=== PATIENT | female | born 1950 | race Caucasian/White ===

== ENCOUNTER 2022-10-08 10:54 | Emergency (ER) | payer MEDICARE, SELFPAY ==
[2022-10-08 10:55] VITALS: BP 194/106; PULSE 80; RESP 16; TEMP 36.4; O2SAT 98; BMI 32.3
--- NOTE | 2022-10-08 11:03 | EKG12_ITS ---
Test Reason : HIGH BP Blood Pressure : / mmHG Vent. Rate : 077 BPM Atrial Rate : 077 BPM P-R Int : 160 ms QRS Dur : 090 ms QT Int : 382 ms P-R-T Axes : 041 -10 035 degrees QTc Int : 432 ms Normal sinus rhythm Normal ECG Confirmed by GENNARO MENDEZ, ANKIT ([id number]), editor farm journal DIAMOND MUNOZ ([id number]) on 10/11/2022 12:39:20 PM Referred By: Confirmed By:ANKIT BURDICK MD
[2022-10-08 11:15] VITALS: PULSE 79; RESP 18; O2SAT 98
[2022-10-08 11:16] VITALS: BP 189/96; PULSE 80; RESP 13; O2SAT 96
--- NOTE | 2022-10-08 11:18 | EDS_ITS ---
HPI History of Present Illness Chief Complaint: Hypertension Detail of Chief Complaint: Multiple high blood pressure readings Informant: patient and spouse/S.O. Onset/Context/Timing Onset: Today Context: - (Unknown) Timing: - (Presumed continuous) Quality: Systolic varying from 168-198 Location: Not applicable Current Severity: Mild Maximum Severity: Mild Worsened by: Unknown Relieved by: Nothing Associated Symptoms Associated Symptoms: Flush sensation Narrative Narrative: Patient is a 72-year-old woman with no history of hypertension, diabetes or hypercholesterolemia. She states her last annual exam was November 2021. She states at that time her systolic blood pressure was 139. She states on Tuesday she felt flushed and had nausea with 1 episode of emesis. She states she had similar presentation when she was diagnosed with hiatal hernia. Today she felt flushed and mild head discomfort. She took her blood pressure. She has taken her blood pressure total of 4 times. Her systolic has varied between 168-198. Diastolic is greater than 100. She presently denies headache, visual, ocular auditory symptoms. She denies trouble with speech or swallowing. She denies cardiac or respiratory symptoms. She denies nausea or vomiting. She denies paresthesia, anesthesia or motor weakness upper or lower extremity. She denies problems with coordination or balance. Prior similar symptoms: No Recent Illness/Hospitalization: No PFSH PFSH Medical History no medical history no medical history Home Medications hydrochlorothiazide 12.5 mg tablet 12.5 mg PO DAILY #30 tabs 10/08/22 [Rx Last Taken Unknown] Allergy/AdvReac Type Severity Reaction Status Date / Time levofloxacin [From Levaquin] Allergy Hives Verified 10/08/22 10:56 Family History unable to obtain Surgical History H/O: hysterectomy Social History (Updated 10/08/22 @ 11:[address] Rian Moore MD) household members: spouse Smoking Status: Never smoker alcohol intake: current alcohol intake frequency: holidays/special occasions only substance use type: does not use ROS ROS ED Constitutional Constitutional ED: Denies chills, fever(s), subjective, sweats or weight loss Eyes Eyes: Denies blurry vision, change in vision or diplopia ENT ENT ED: Denies ear pain, rhinorrhea or sore throat Cardiovascular Cardiovascular: Denies chest pain, orthopnea, palpitations, paroxysmal nocturnal dyspnea or racing heartbeat Respiratory/Chest Respiratory/Chest: Denies cough, dyspnea, dyspnea on exertion, orthopnea or paroxysmal nocturnal dyspnea Gastrointestinal Gastrointestinal: Denies abdominal pain, diarrhea, melena, nausea or vomiting Genitourinary Genitourinary ED: Denies dysuria, hematuria or urinary frequency Musculoskeletal Musculoskeletal: Denies arthralgias, back pain, myalgias or neck pain Integumentary Denies abscess, Abrasions or rash Neurologic Neurologic: Denies headache(s), paresthesias or weakness Psychiatric Psychiatric: Denies anxiety Endocrine Endocrinology: Denies cold intolerance, heat intolerance, polydipsia or polyuria EXAM Physical Exam Const Vital Signs: 10/08/22 10:55 10/08/22 11:15 10/08/22 11:16 Temperature 97.6 F L Temperature Source Temporal Pulse Rate 80 79 80 Respiratory Rate 16 18 13 Blood Pressure 194/106 H 189/96 H Blood Pressure Mean 135 123 Pulse Ox 98 98 96 Oxygen Delivery Method Room Air Positive well nourished, well developed and obese Constitutional Narrative: Patient reports no change in weight. General Appearance ED: well developed and NAD; Negative for pallor Nutritional Appearance: obese HEENT Reports moist mucous membranes HEENT Narrative: Head is atraumatic normocephalic. Ears normal. TMs normal. Nares patent. Uvula midline. No deviation of tongue with protrusion. Posterior pharynx is unremarkable. Eyes PERRL and EOMs intact bilaterally Eyes Narrative: Cup-to-disc ratio normal. There is no papilledema. There is no AV nicking noted. There is no nystagmus. General Eye ED: Negative for pale conjunctiva or scleral icterus Neck no lymphadenopathy, supple and no JVD Chest Wall inspection of chest normal and palpation of chest normal Resp normal respiratory effort and clear to auscultation bilaterally Cardio regular rate, regular rhythm, S1 normal heart sound, S2 normal heart sound and no murmurs GI normal to inspection, nondistended, normoactive bowel sounds, non-distended and no masses Back/Spine no CVA tenderness Extremity normal to inspection General Extremety ED: Negative for edema or tenderness General Extremity: Negative for edema Neuro oriented x3, CN's II-XII intact bilaterally and no sensory deficits noted Neuro Narrative: There is no dysmetria. Bicep, tricep, brachialis, patella and ankle reflexes are 2+ and symmetric. There is no clonus or Babinski sign noted. Gait was observed and is normal. Sensorium / Orientation: alert Motor Exam: strength 5/5 throughout Psych mental status grossly normal Skin no rashes or lesions noted, no wounds and skin turgor normal General Skin Exam: Negative for elasticity normal, jaundice or pallor MDM MDM MDM Narrative Medical decision making narrative: Patient presents with hypertension. Review of prior records indicates patient does not have history of hypertension. Prior records were reviewed through [facility]. There was no documented blood pressures for comparison. 1 visit was for mammogram screening. Patient also had screening for osteopenia/osteoporosis. Review of problem list confirms that patient does not have history of hypertension. EKG, basic metabolic panel and UA were obtained to assess for evidence of endorgan dysfunction. We will also monitor blood pressure. Since patient has no evidence of endorgan dysfunction patient was told there are 2 options 1 would be to treat her with a antihypertensive med or contact her doctor and have her pressure checked in 1 to 2 weeks and if still elevated to initiate therapy. Patient states because she has this flushed feeling and pressure in her head she would like to start on a blood pressure med. Patient was informed of prior studies that patients can wait for prolonged period prior to initiation therapy. She states she would prefer to start treatment. Lab Data Attestation: I reviewed the patient's lab results. Lab results narrative: Basic metabolic panel reveals slight elevation in chloride which is insignificant. Renal function is normal. CO2 anion gap is normal. Electrolytes are normal. Labs: Laboratory Results - last 24 hr 10/08/22 10/08/22 11:09 13:00 Sodium 142 Potassium 4.9 Chloride 108 H Carbon Dioxide 29.0 Anion Gap 5 BUN 17 Creatinine 0.81 Estim Creat Clear Calc 70.87 Est GFR (MDRD) Af Amer 90 Est GFR (MDRD) Non-Af 74 BUN/Creatinine Ratio 21.1 H Glucose 108 H Calcium 10.2 H Urine Color Yellow Urine Clarity Clear Urine pH 8.0 Ur Specific [place] 1.010 Urine Protein Negative Urine Glucose (UA) Normal Urine Ketones Negative Urine Occult Blood Negative Urine Nitrite Negative Urine Bilirubin Negative Urine Urobilinogen Normal Ur Leukocyte Esterase Negative Urine RBC 0 SEEN Urine WBC 0 SEEN Ur Squamous Epith Cells 0 SEEN Urine Bacteria 0 SEEN Urine Mucus 0 SEEN EKG Initial EKG: Attestation: I personally reviewed and interpreted this EKG as follows: Interpretation: Sinus Rhythm (EKG is normal. Rate is 77. MD interval is 160 ms. QRS duration is 90 ms. QT duration is an 82 ms axis is normal. There is no evidence of LVH.) Treatment and Re-Evaluation Narrative: Patient instructed to contact her doctor for blood pressure check in 1 to 2 weeks. She was in informed that the medication will increase urine output the first 1 to 2 weeks. Discharge Plan Triage Chief Complaint: Hypertension Other Complaint: Dizziness ED Provider: Rian Moore Dx/Rx/DC Orders Clinical Impression: Hypertension Instructions: ED Hypertension New Begin Treatment Prescriptions: New hydrochlorothiazide 12.5 mg tablet 12.5 mg PO DAILY Qty: 30 0RF Primary Care Provider: Marvin Bhatt Referrals: Marvin Bhatt MD [Primary Care Provider] - 1-2 Weeks Disposition Disposition: Home, Self Care
[2022-10-08 11:43] LABS: Anion Gap 5 (5-15); BUN 17 mg/dL (7-18); BUN/Creat Ratio 21.1 RATIO (10-20); Calcium,Total 10.2 mg/dL (8.5-10.1); Chloride 108 mmol/L (98-107); Creatinine, Serum 0.81 mg/dL (0.55-1.02); EST Glomerular Filtration Rate 74 mL/min (>60); Est Glom Filt Rate - Afr Amer 90 mL/min (>60); Estimated Creatinine Clearance 70.87 ml/min; Glucose 108 mg/dL (74-106); Potassium 4.9 mmol/L (3.5-5.1); Sodium Level 142 mmol/L (136-145)
[2022-10-08 13:15] LABS: Bacteria 0 SEEN /hpf (None Seen); Mucous, Urine 0 SEEN /hpf (<or=2+); Red Blood Cells-Urine 0 SEEN /hpf (0-5); Squamous Epithelial Cells - UA 0 SEEN /hpf (5-10); White Blood Cells 0 SEEN /hpf (0-5)
[2022-10-08 13:20] LABS: Color, Urine Yellow (Yellow); Glucose, Dipstick Normal (Normal); Ketone-Dipstick Negative (Negative); Leukocyte Esterase-Dipstick Negative /ul (Negative); Nitrite-Dipstick Negative (Negative); Occult Blood-Urine Negative /ul (Negative); Protein-Dipstick Negative (Negative); Urine Bilirubin Dipstick Negative (Negative); Urine Clarity Clear (Clear); Urine Urobilinogen Normal (Normal)
[2022-10-08] MEDS: hydroCHLOROthiazide 12.5mg 12.5 MG PO (13:47)
== END 2022-10-08 13:50 | disposition home or self-care (01) ==
PROVIDERS: Emergency Provider Emergency Medicine; PCP Family Medicine; Visit Provider Emergency Medicine
DX: I10 Essential (primary) hypertension (principal); E66.9 Obesity, unspecified
CPT/HCPCS: 80048; 81001; 93005; 99285; A4216

== ENCOUNTER 2024-07-12 04:08 | Emergency (ER) | payer MEDICARE, SELFPAY ==
[2024-07-12 04:09] VITALS: BP 159/71; PULSE 75; RESP 16; TEMP 36.8; O2SAT 95; BMI 37.5
--- NOTE | 2024-07-12 04:23 | CT_ITS ---
EXAM: CT Abdomen And Pelvis W/O Contrast Injection HISTORY: flank pain rt flank pain, hx ks, hyster TECHNIQUE: Routine protocol CT abdomen and pelvis. IV Contrast: None.. Oral contrast: None. RADIATION DOSAGE (If Supplied By Facility): CTDIvol = ( 14.29 ) mGy, DLP = ( 677.48 ) mGycm Individualized dose optimization techniques were used for this CT. COMPARISON: None. LIMITATIONS: None. FINDINGS: LOWER CHEST: Included lung bases are clear. Coronary artery calcifications are noted. Small hiatal hernia LIVER: Small cysts in the left lobe. GALLBLADDER AND BILIARY TREE: Grossly unremarkable. PANCREAS: Grossly unremarkable. SPLEEN: Grossly unremarkable. ADRENAL GLANDS: Grossly unremarkable. KIDNEYS AND URETERS: There is a 3 mm calculus in the distal right ureter at the ureterovesical junction. The right ureter is dilated with moderate right hydronephrosis and perinephric stranding. Several small calculi in the left kidney. No hydronephrosis on the left. PERITONEUM: No free air. No free fluid. BOWEL: No bowel obstruction. APPENDIX: Visualized and unremarkable. No evidence of acute appendicitis. VESSELS: Abdominal aorta is normal caliber. REPRODUCTIVE ORGANS: The uterus is not identified. URINARY BLADDER: Minimally distended. ABDOMINAL WALL: Unremarkable. BONES: No acute abnormalities. Degenerative changes lumbar spine with minimal anterolisthesis at L3-4, and L4-5. CT/Abdomen/Pelvis without Cont IMPRESSION: Distal right ureteral calculus with moderate right hydroureteronephrosis. Left nephrolithiasis. Electronically Signed: Carolina Villalobos MD at 5:28 EST ,
[2024-07-12 04:29] LABS: Bacteria 0 SEEN /hpf (None Seen); Mucous, Urine 0 SEEN /hpf (<or=2+); Red Blood Cells-Urine 0 SEEN /hpf (0-5); Squamous Epithelial Cells - UA 0 SEEN /hpf (5-10); White Blood Cells 0 SEEN /hpf (0-5)
[2024-07-12] MEDS: 0.9% Normal Saline (1000mL) 1,000 ML 999 ML IV (04:32)
[2024-07-12] MEDS: Ketorolac 15 MG/ML Vial IV (04:32)
[2024-07-12] MEDS: Ondansetron 4 MG/2 ML Vial IV (04:32)
[2024-07-12 04:33] LABS: Absolute Lymphocyte Count 0.85 X10^3/uL (0.83-4.51); Absolute Neutrophil Count 7.6 X10^3/uL (2.0-7.7); Basophil# 0.02 X10^3/uL; Basophil% 0.2 % (0-1); Eosinophil# 0.06 X10^3/uL; Eosinophils% 0.7 % (0-5); Hematocrit 42.3 % (37-47); Hemoglobin 13.9 g/dL (12.0-15.0); Lymphocyte # 0.85 X10^3/ul (0.83-4.51); Lymphocyte % 9.4 % (19-41); Mean Corp Hgb Conc 32.9 g/dL (32-36); Mean Corpuscular Hgb 28.3 pg (27.0-32.0); Mean Platelet Vol. 9.8 fl (6.2-12.0); Monocyte# 0.55 X10^3/uL; Monocyte% 6.1 % (0-10); NRBC Flagged by Analyzer 0 % (0-5); Neutrophil # 7.58 X10^3/uL (2.7-7.7); Neutrophil % 83.3 % (47-70); Platelet Count 286 K/mm3 (150-450); RBC Distribution Width CV 14.2 % (11.6-14.6); RBC Distribution Width SD 44.8 fl (35.1-43.9); Red Blood Count 4.92 M/mm3 (4.2-5.4); White Blood Count 9.1 K/mm3 (4.4-11.0)
[2024-07-12 04:34] LABS: Color, Urine Yellow (Yellow); Glucose, Dipstick Normal (Normal); Ketone-Dipstick Negative (Negative); Leukocyte Esterase-Dipstick 100 /ul (Negative); Nitrite-Dipstick Negative (Negative); Occult Blood-Urine 25 /ul (Negative); Protein-Dipstick 100 mg/dl (Negative); Specific Gravity, Urine 1.025 (1.002-1.030); Urine Bilirubin Dipstick Negative (Negative); Urine Clarity Clear (Clear); Urine Urobilinogen Normal (Normal)
[2024-07-12 04:53] LABS: Anion Gap 6 (5-15); BUN 19 mg/dL (7-18); BUN/Creat Ratio 22.9 RATIO (10-20); Calcium,Total 9.3 mg/dL (8.5-10.1); Chloride 107 mmol/L (98-107); Creatinine, Serum 0.83 mg/dL (0.55-1.02); EST Glomerular Filtration Rate 71 mL/min (>60); Est Glom Filt Rate - Afr Amer 86 mL/min (>60); Estimated Creatinine Clearance 57.32 ml/min; Glucose 163 mg/dL (74-106); Potassium 4.5 mmol/L (3.5-5.1); Sodium Level 138 mmol/L (136-145)
--- NOTE | 2024-07-12 05:47 | EX.ED.DYSGE1 ---
HPI History of Present Illness Chief Complaint: Flank Pain Informant: patient and spouse/S.O. Narrative Narrative: Patient is a 73-year-old female with past medical history of hypertension and remote history of kidney stone roughly 10 years ago. She states last night she developed right sided flank/back pain while at rest. She states that there was no recent trauma or excessive activity prior to the pain beginning. She denies any concern for urinary tract infection. She states there is been no loss of bowel or bladder control and she denies any IV drug use. She states the pain began wrapping around towards her abdomen and she feels this is very similar to her previous history of kidney stone and with concern for this comes in for evaluation. PFSH PFSH Home Medications ?Medication ?Instructions ?Recorded ?Last Taken ?Type hydrochlorothiazide 12.5 mg tablet 12.5 mg PO DAILY #30 tabs 10/08/22 Unknown Rx cephalexin 500 mg capsule 500 mg PO TID 7 days #21 caps 07/12/24 Unknown Rx ketorolac 10 mg tablet 10 mg PO 4X/DAY PRN pain 5 days 07/12/24 Unknown Rx #20 tabs ondansetron 4 mg disintegrating 4 mg PO TID PRN nausea and 07/12/24 Unknown Rx tablet vomiting #21 tabs oxycodone 5 mg tablet 5 mg PO Q6H PRN pain 5 days #20 07/12/24 Unknown Rx tabs tamsulosin 0.4 mg capsule (Flomax) 0.4 mg PO DAILY 14 days #14 caps 07/12/24 Unknown Rx Allergy/AdvReac Type Severity Reaction Status Date / Time levofloxacin (From Levaquin) Allergy Hives Verified 07/12/24 04:08 Surgical History (Updated 07/12/24 @ 04:11 by Suma Ortiz) Status post removal of part of parathyroid H/O: hysterectomy Social History (Updated 10/08/22 @ 11:[address] Rian Moore MD) household members: spouse Smoking Status: Never smoker alcohol intake: current alcohol intake frequency: holidays/special occasions only substance use type: does not use ROS ROS ED Constitutional Constitutional ED: Denies chills or fever(s) ENT ENT ED: Denies sore throat Cardiovascular Cardiovascular: Denies chest pain Respiratory/Chest Respiratory/Chest: Denies cough or dyspnea Gastrointestinal Gastrointestinal: Reports abdominal pain and nausea; Denies diarrhea or vomiting Genitourinary Genitourinary ED: Reports hematuria; Denies dysuria or urinary frequency Musculoskeletal Musculoskeletal: Reports back pain; Denies myalgias Integumentary Denies rash Neurologic Neurologic: Denies headache(s) Hematologic/Lymphatic Hematologic/Lymphatic: Denies easy bleeding or easy bruising EXAM Physical Exam Const Vital Signs: 07/12/24 04:09 07/12/24 06:21 Temperature 98.2 F 98.0 F Temperature Source Oral Pulse Rate 75 83 Respiratory Rate 16 18 Blood Pressure 159/71 H 145/82 H Blood Pressure Mean 100 103 Pulse Ox 95 95 Oxygen Delivery Method Room Air Positive well nourished and well developed General Appearance ED: well developed; Negative for pallor HEENT HEENT Narrative: Normocephalic atraumatic Eyes PERRL and EOMs intact bilaterally General Eye ED: Negative for scleral icterus Neck supple Resp normal respiratory effort and clear to auscultation bilaterally Cardio regular rate and regular rhythm Rate: other Other Details: Radial and carotid pulses are equal and symmetric GI non-distended and no masses GI Narrative: Abdomen is soft and nondistended with normal active bowel sounds. There is mild pain with palpation along the right lateral abdomen without voluntary guarding or rigidity. No pulsatile mass or fluid wave Auscultation: normoactive bowel sounds Palpation: soft Back/Spine Back/Spine Narrative: Positive right CVA pain noted Extremity normal to inspection Neuro oriented x3, CN's II-XII intact bilaterally and no sensory deficits noted Sensorium / Orientation: alert Motor Exam: strength 5/5 throughout Psych mental status grossly normal Skin no rashes or lesions noted and no wounds Skin Narrative: No overlying soft tissue changes to suggest trauma or infection General Skin Exam: Negative for jaundice or pallor MDM MDM MDM Narrative Medical decision making narrative: Patient arrived to the ER hypertensive but otherwise with stable vitals. She had sudden onset right sided back/flank pain wrapping towards the abdomen. Differential diagnosis is for kidney stone versus UTI versus pyelonephritis versus biliary colic versus acute cholecystitis versus atypical pancreatitis. As most likely differential is kidney stone based on her symptoms and history basic blood work and a urine sample as well as a noncontrast CT were obtained. Labs showed no sign of acute kidney injury or urosepsis. CT scan confirmed a stone on the right. However after receiving Toradol she had complete resolution of pain. Therefore at this time with no signs of AB or urosepsis and resolution of her pain there is no need for admission to the hospital and she can be discharged home and follow-up with urology as an outpatient History & Record Review Discussion w/independent historian: Patient and Significant other Lab Data Attestation: I reviewed the patient's lab results. Labs: Laboratory Results - last 24 hr 07/12/24 04:20 WBC 9.1 RBC 4.92 Hgb 13.9 Hct 42.3 MCV 86.0 MCH 28.3 MCHC 32.9 RDW Std Deviation 44.8 H RDW Coeff of Rain 14.2 Plt Count 286 MPV 9.8 Immature Gran % (Auto) 0.300 Neut % (Auto) 83.3 H Lymph % (Auto) 9.4 L [place] % (Auto) 6.1 Eos % (Auto) 0.7 Baso % (Auto) 0.2 Absolute Neuts (auto) 7.6 Absolute Lymphs (auto) 0.85 Nucleated RBC % 0 Sodium 138 Potassium 4.5 Chloride 107 Carbon Dioxide 26.0 Anion Gap 6 BUN 19 H Creatinine 0.83 Estim Creat Clear Calc 57.32 Est GFR (MDRD) Af Amer 86 Est GFR (MDRD) Non-Af 71 BUN/Creatinine Ratio 22.9 H Glucose 163 H Calcium 9.3 Urine Color Yellow Urine Clarity Clear Urine pH 6.0 Ur Specific [place] 1.025 Urine Protein 100 H Urine Glucose (UA) Normal Urine Ketones Negative Urine Occult Blood 25 H Urine Nitrite Negative Urine Bilirubin Negative Urine Urobilinogen Normal Ur Leukocyte Esterase 100 H Urine RBC 0 SEEN Urine WBC 0 SEEN Ur Squamous Epith Cells 0 SEEN Urine Bacteria 0 SEEN Urine Mucus 0 SEEN Radiography Diagnostic Testing: Clinical Impression(s) from Imaging Studies Abdomen/Pelvis CT 07/12/24 04:23 IMPRESSION: Distal right ureteral calculus with moderate right hydroureteronephrosis. Left nephrolithiasis. Electronically Signed: Carolina Villalobos MD at 5:28 EST , Discharge Plan Triage Chief Complaint: Flank Pain ED Provider: David Schwarz Dx/Rx/DC Orders Clinical Impression: Kidney stone, Renal colic, Hypertension Instructions: ED Kidney Stone with Pain Prescriptions: New tamsulosin [Flomax] 0.4 mg capsule 0.4 mg PO DAILY 14 Days Qty: 14 0RF ondansetron 4 mg tablet,disintegrating 4 mg PO TID PRN (Reason: nausea and vomiting) Qty: 21 0RF cephalexin 500 mg capsule 500 mg PO TID 7 Days Qty: 21 0RF ketorolac 10 mg tablet 10 mg PO 4X/DAY PRN (Reason: pain) 5 Days Qty: 20 0RF oxycodone 5 mg tablet 5 mg PO Q6H PRN (Reason: pain) 5 Days Qty: 20 0RF No Action hydrochlorothiazide 12.5 mg tablet 12.5 mg PO DAILY Qty: 30 0RF Primary Care Provider: Marvin Bhatt Referrals: Tamiko Herrera MD [Med Staff - Active Staff] - Marvin Bhatt MD [Primary Care Provider] - Activity Restrictions/Additional Instructions: Please return to the ER for repeat evaluation if you develop a fever over 100.4 or your pain is not controlled with the prescribed medication. Otherwise follow-up with urology for repeat evaluation and to discuss potential stent placement if your stone does not pass spontaneously Print Language: Beninese Disposition Disposition: Home, Self Care Discharge Date/Time: 07/12/24 06:23
[2024-07-12 06:21] VITALS: BP 145/82; PULSE 83; RESP 18; TEMP 36.7; O2SAT 95
== END 2024-07-12 06:23 | disposition home or self-care (01) ==
PROVIDERS: Emergency Provider Emergency Medicine; PCP Family Medicine; Visit Provider Emergency Medicine
DX: N13.2 Hydronephrosis with renal and ureteral calculous obstruction (principal); I10 Essential (primary) hypertension; Z88.1 Allergy status to other antibiotic agents; Z87.442 Personal history of urinary calculi; Z79.899 Other long term (current) drug therapy
CPT/HCPCS: 74176; 80048; 81001; 85025; 96361; 96374; 96375; 99282; J7030; A4216; J2405